=== PATIENT | male | born 1990 | race Caucasian/White ===

== ENCOUNTER 2019-03-22 09:09 | Emergency (ER) | payer OTHER ==
[~2019-03-22] VITALS: Ht 182.9 cm; Wt 86.2 kg
== END 2019-03-22 12:13 | disposition home or self-care (01) ==
LOC: ER 09:09
DX: N39.0 Urinary tract infection, site not specified (principal)

== ENCOUNTER → 2020-03-13 09:23 | Outpatient (CLI) | payer OTHER | END | disposition home or self-care (01) | LOC: LAB 09:23 | PROVIDERS: ATTEND General Practice | DX: Z11.59 Encounter for screening for other viral diseases (principal); Z20.828 Contact with and (suspected) exposure to other viral communicable diseases ==